=== PATIENT | female | born 1970 | race African-American/Black ===

== ENCOUNTER 2019-10-01 06:50 | Inpatient (IN) | payer BC, OTHER ==
[~2019-10-01] VITALS: Ht 175.3 cm; Wt 104.3 kg
--- NOTE | 2019-10-01 06:59 | NUR ---
PT BIB EMS C/O DIZZINESS WITH N/V, +D AND BLURRED VISION SINCE 199. PT AAOX4, ABLE TO FOLLOW COMMANDS, STRONG BILATERAL FENCE REPAIRMAN NOTED. PT CONNECTED TO THE DYNAMOTOR REPAIRER AND POX
[2019-10-01] MEDS ORDERED: ONDANSETRON HCL/PF 4 MG/2 ML VIAL ONE ×2 (07:05→10:53)
[2019-10-01 07:16] LABS: BASOPHILS % (AUTO) 0.4 % (0.0-2.0); EOSINOPHILS % (AUTO) 1.9 % (0.0-6.0); HEMATOCRIT 39 % (33-45); HEMOGLOBIN 12.5 g/dL (11.5-14.8); LYMPHOCYTES # (AUTO) 0.5 /CMM (0.8-4.8); LYMPHOCYTES % (AUTO) 9.7 % (20.0-44.0); MEAN CORPUSCULAR HGB CONC 32 g/dl (31.0-36.0); MEAN CORPUSCULAR VOLUME 81 fL (82-100); MONOCYTES # (AUTO) 0.3 /CMM (0.1-1.30); MONOCYTES % (AUTO) 5.5 % (2.0-12.0); NEUTROPHILS # (AUTO) 4.3 /CMM (1.8-8.9); NEUTROPHILS % (AUTO) 82.5 % (43.0-81.0); PLATELET COUNT (AUTO) 170 /CMM (150-450); RED BLOOD CELL COUNT(AUTO) 4.82 MIL/uL (4.0-5.2); WHITE BLOOD COUNT (AUTO) 5.2 K/uL (4.3-11.0)
[2019-10-01 07:21] LABS: CREATININE 0.8 mg/dL (0.6-1.3); POTASSIUM 3.9 mmol/L (3.5-5.1)
[2019-10-01] MEDS ORDERED: DIAZEPAM 10 MG TABLET ONE (07:23)
[2019-10-01 07:27] LABS: ALBUMIN 3.9 g/dL (3.4-5.0); BILIRUBIN,DIRECT 0.1 mg/dL (0.0-0.2); BILIRUBIN,TOTAL 0.5 mg/dL (0.2-1.0); TOTAL PROTEIN, SERUM 7.7 g/dL (6.4-8.2)
[2019-10-01] MEDS ORDERED: DIAZEPAM 5 MG/ML 2 ML DISP.SYRIN IV ONE (07:30)
[2019-10-01] MEDS ORDERED: DIAZEPAM 10 MG TABLET PO ONE (07:30)
[2019-10-01] MEDS ORDERED: IV NS 0.9% 1,000 ML BAG IV ONE (07:30)
[2019-10-01] MEDS ORDERED: ONDANSETRON HCL/PF 4 MG/2 ML VIAL IVP ONE ×2 (07:30→11:00)
--- NOTE | 2019-10-01 09:13 | NUR ---
Patient is resting comfortably in bed with eyes closed. Easily aroused. VSS
--- NOTE | 2019-10-01 10:06 | NUR ---
TAKEN TO MRI
[2019-10-01] MEDS ORDERED: MECLIZINE HCL 25 MG TABLET ONE (10:53)
[2019-10-01] MEDS ORDERED: MECLIZINE HCL 12.5 MG TABLET PO ONE (11:00)
--- NOTE | 2019-10-01 11:34 | NUR ---
CALLED OUTREACH SPECIALIST NEUROLOGIST. SPEAKING TO HIM NOW
--- NOTE | 2019-10-01 11:44 | NUR ---
THOMAS MONTE CELLPHONE [phone]
--- NOTE | 2019-10-01 11:46 | NUR ---
CALLED NURSING SUP FOR M/S BED.
--- NOTE | 2019-10-01 11:46 | NUR ---
CALLED [facility].
--- NOTE | 2019-10-01 11:59 | NUR ---
ROWDY LUCERO NP AT BEDSIDE
--- NOTE | 2019-10-01 12:15 | NUR ---
Brody reyes in [facility] - 10/01/19 at 1221 by ANJEL NURSING AUBREY PHILLIPS M/S BED [id number].
[2019-10-01] MEDS ORDERED: MAG HYDROX/AL HYDROX/SIMETH 30 ML UDC PO PRN (12:30)
[2019-10-01] MEDS ORDERED: ONDANSETRON HCL/PF 4 MG/2 ML VIAL IVP PRN (12:30)
[2019-10-01] MEDS ORDERED: MECLIZINE HCL 12.5 MG TABLET PO PRN (12:30)
[2019-10-01] MEDS ORDERED: ACETAMINOPHEN 325 MG TABLET PO PRN (12:30)
[2019-10-01] MEDS ORDERED: HYDROCODONE/APAP 10/325MG 1 EA TABLET PO PRN (12:30)
[2019-10-01] MEDS ORDERED: MAGNESIUM HYDROXIDE 30 ML UDC PO PRN (12:30)
[2019-10-01] MEDS ORDERED: TEMAZEPAM 15 MG CAPSULE PO PRN (12:30)
--- NOTE | 2019-10-01 13:04 | NUR ---
REPORT GIVEN TO KELLY CALDERA
--- NOTE | 2019-10-01 13:17 | NUR ---
NURSING SUP GAVE BED M/S BED 201.
--- NOTE | 2019-10-01 13:20 | NUR ---
Patient transferred to room 201 in stable condition. No distress noted.
--- NOTE | 2019-10-01 13:30 | NUR ---
ADMISSION TO [facility] SURGE PT CAME TO FLOOR VIA [facility] @[id number]. PT CAME FROM ER WITH COMPLAINTS OF DIZZINESS AND BLURED VISION. 49 Y/O FEMALE WITH HX OF HYPOTHYROIDISM AND HYSTERECTOMY 11 YRS AGO. COMPLETE BODY CHECK DONE. SKIN INTACT. REFUSED FOR PICTURES TO BE TAKEN. NO SKIN BREAKDOWN NOTED. PT CONTINENT OF BOWEL AND BLADER. AMBULATORY WITH ASSIST. SAFETY PRECAUTIONS IIN PLACE. BED LOCKED AND IN LOW POSITION. SIDE RAILS UP. FALL PRECAUTIONS IN PLACE. EDUCATED PT TO CALL NURSING STAFF IF WANTING TO GET UP FROM BED. PT AGREED. PT'S THOMAS MOODY PRESENT UPON ADMISSION TO MED SURGE FLOOR. PHONE NUMBER PROVIDED BY . VS CHECKED. T=97.8, P=75, RR=18, IO=949/72, O2 SAT=98% ON ROOM AIR. ALL NEEDS MET AND ATTENDED.
[2019-10-01] MEDS: IV NS 0.9% 1,000 ML IV PRN (13:38)
[2019-10-01 13:40] VITALS: BP 137/77
--- NOTE | 2019-10-01 14:45 | NUR ---
SEEN BY NEUROLOGY PT SEEN BY NEUROLOGY (DR. ESPINOZA), WITH NEW ORDERS FOR SOLUMEDROL 40MG IV X5 DAYS, PROTONIX 40MG QD, THE REQUESTED FOR HOSPITALIST TO PUT PT ON SLIDING SCALE. WILL NOTIFY DR LUCERO
[2019-10-01] MEDS: MECLIZINE HCL 25 MG TABLET PO PRN (14:55)
[2019-10-01 15:10] VITALS: BP 137/77
[2019-10-01 15:13] VITALS: BP 137/77
[2019-10-01 16:27] VITALS: BP 146/72
[2019-10-01] MEDS ORDERED: PANTOPRAZOLE 40 MG TABLET.DR PO ONE (17:00)
[2019-10-01] MEDS ORDERED: PANTOPRAZOLE 40 MG TABLET.DR PO SCH (17:00)
[2019-10-01] MEDS ORDERED: DEXTROSE 50%-WATER 50 ML DISP.SYRIN IV PRN (17:00)
[2019-10-01] MEDS: methylPREDNISolone SOD SUCC 40 MG/ML VIAL IV SCH (17:23)
--- NOTE | 2019-10-01 17:37 | NUR ---
DR LUCERO FOLLOW UP RECEIVED ORDERS FROM DR LUCERO FOR MILD SLIDING SCALE WITH ACCUCHECKS ACHS
[2019-10-01] MEDS: BLOOD SUGAR DIAGNOSTIC 1 EACH STRIP IN SCH ×2 (17:50→21:57)
--- NOTE | 2019-10-01 18:31 | NUR ---
MS RN CLOSING NOTES PT IN BED. ASLEEP AT THIS TIME. PROVIDED COMFORTABLE ENVIRONMENT. PT STILL STATES THAT SHE STILL FEELS DIZZY. IST DOSE OF SOLUMEDROL GIVEN PER DR. ESPINOZA ORDERS. IV SITE INTACT AND PATENT ON R AC 20G. IV FLUID RUNNING NS @75CC/HR. TOLERATING WELL. PT WAS SERVED WITH DINNER. SHE SAID SHE WILL TRY TO EAT SOMETHING. ACCUCHECK WAS DONE PRIOR TO DINNER BS NOTED TO BE 76.
[2019-10-01 19:30] VITALS: BP 137/82
--- NOTE | 2019-10-01 19:54 | NUR ---
MS RN NOTES PATIENT IN BED, ASLEEP. ALERT AND ORIENTED X 4. BREATHING EVEN AND UNLABORED ON ROOM AIR. SHOWS NO SIGNS OF ACUTE RESPIRATORY DISTRESS. NO ACUTE PAIN. IV ON RAC 20G RUNNING NS AT 75ML/HR. CLEAN DRY AND INTACT. SHOWS NO SIGNS OF INFILTRATION, NO REDNESS. SAFETY PRECAUTION IN PLACE. BED IN LOWEST POSITION, LOCKED AND CALL LIGHT KEPT WITHIN REACH. WILL CONTINUE TO MONITOR.
[2019-10-01 20:00] VITALS: BP 137/82
[2019-10-01] MEDS: INSULIN REGULAR, HUMAN 100 UNIT/ML 3 ML VIAL SQ PRN (22:01)
[2019-10-02] MEDS: IV NS 0.9% 1,000 ML IV PRN ×2 (05:47→20:19)
[2019-10-02 06:23] LABS: BASOPHILS % (AUTO) 0.1 % (0.0-2.0); HEMATOCRIT 39 % (33-45); HEMOGLOBIN 12.8 g/dL (11.5-14.8); LYMPHOCYTES # (AUTO) 0.4 /CMM (0.8-4.8); LYMPHOCYTES % (AUTO) 5.6 % (20.0-44.0); MEAN CORPUSCULAR HGB CONC 33 g/dl (31.0-36.0); MEAN CORPUSCULAR VOLUME 81 fL (82-100); MONOCYTES # (AUTO) 0.2 /CMM (0.1-1.30); MONOCYTES % (AUTO) 3.3 % (2.0-12.0); NEUTROPHILS # (AUTO) 5.9 /CMM (1.8-8.9); PLATELET COUNT (AUTO) 191 /CMM (150-450); RED BLOOD CELL COUNT(AUTO) 4.82 MIL/uL (4.0-5.2); WHITE BLOOD COUNT (AUTO) 6.5 K/uL (4.3-11.0)
--- NOTE | 2019-10-02 06:33 | NUR ---
MS RN NOTES PATIENT IN BED, ASLEEP. ALERT AND ORIENTED X 4. BREATHING EVEN AND UNLABORED ON ROOM AIR. SHOWS NO SIGNS OF ACUTE RESPIRATORY DISTRESS. NO ACUTE PAIN. IV ON RAC 20G RUNNING NS AT 75ML/HR. CLEAN DRY AND INTACT SHOWS NO SIGNS OF INFILTRATION, NO REDNESS. ALL DUE MEDICATIONS GIVEN. SAFETY PRECAUTION IN PLACE. BED IN LOWEST POSITION, LOCKED AND CALL LIGHT KEPT WITHIN REACH. WILL ENDORSE TO ONCOMING NURSE.
[2019-10-02 06:36] LABS: CALCIUM, SERUM 9.1 mg/dL (8.5-10.1); CREATININE 0.7 mg/dL (0.6-1.3); MAGNESIUM 2.1 mg/dL (1.8-2.4); POTASSIUM 4.1 mmol/L (3.5-5.1)
[2019-10-02 06:44] LABS: THYROID STIMULATING HORMONE 0.173 uIU/mL (0.358-3.74)
[2019-10-02] MEDS: BLOOD SUGAR DIAGNOSTIC 1 EACH STRIP IN SCH ×4 (07:05→22:03)
[2019-10-02] MEDS: PANTOPRAZOLE 40 MG TABLET.DR PO SCH (07:58)
[2019-10-02 08:00] VITALS: BP 142/88
--- NOTE | 2019-10-02 08:00 | NUR ---
MS RN OPENING NOTES RECEIVED PT IN BED. AWAKE, ALERT AND ORIENTED X4. NO CARDIAC OR RESP DISTRESS NOTED. BREATH SOUNDS CLEAR. BREATHING EVEN AND UNLABORED. IV SITE NOTED ON R AC 20. NO S/S OF INFECTION OR INFILTRATION NOTED. PT CONTINENT OF BOWEL AND BLADER. AMBULATORY WITH ASSIST. SAFETY PRECAUTIONS IIN PLACE. BED LOCKED AND IN LOW POSITION. SIDE RAILS UP. FALL PRECAUTIONS IN PLACE. EDUCATED PT TO CALL NURSING STAFF IF WANTING TO GET UP FROM BED. PT AGREED.
[2019-10-02] MEDS: methylPREDNISolone SOD SUCC 40 MG/ML VIAL IV SCH (08:05)
--- NOTE | 2019-10-02 09:00 | NUR ---
F/U WITH DR ALEXIS ESPINOZA CALLED TO GET AN UPDATE ON PT. REPORTED TO MD REGARDING PT'S CONCERNS THIS AM. PER PT "I HAD A MIGRAINE THIS EARLY THIS MORNING BUT ITS GONE NOW." PT ALSO STATES THAT SHE FEELS "A LITTLE BETTER AFTER AFTER THE 1ST DOSE OF SOLUMEDROL" DR. ESPINOZA NOTIFIED. PER DR ESPINOZA, HE WILL GET THE PT SEEN BY INFECTIOUS DISEASE.
--- NOTE | 2019-10-02 09:39 | NUR ---
MRI WITH CONTRAST PT PICKED UP BY RADIOLOGY FOR MRI OF BRAIN WITH CONTRAST. CONSENT OBTAINED FROM PT
[2019-10-02] MEDS ORDERED: GADOTERIDOL 279.3 MG/ML VIAL IV ONE (10:38)
[2019-10-02] MEDS ORDERED: LORAZEPAM INJ 2 MG/ML VIAL IV PRN (12:00)
[2019-10-02 16:00] VITALS: BP 147/83
[2019-10-02] MEDS: INSULIN REGULAR, HUMAN 100 UNIT/ML 3 ML VIAL SQ PRN (17:39)
--- NOTE | 2019-10-02 18:09 | NUR ---
MS RN CLOSING NOTES PT IN BED. AWAKE ,ALERT AND ORIENTED. PT EATING HER DINNER BROUGHT IN BY HER FRIEND. PT WAS SEEN BY DR ESPINOZA TODAY. NO NEW ORDERS GIVEN. PROVIDED COMFORTABLE ENVIRONMENT. IV SITE ON R AC WAS DISCONTINUED DUE TO OCCLUSON. IV RE-INSERTED ON L WRIST 24G. IV SITE INTACT AND PATENT. NO S/S OF INFECTION OR INFILTRATION NOTED. IV FLUID RUNNING NS @75CC/HR. TOLERATING WELL. NO COMPLAINTS OF PAIN OR DISCOMFORT AT THIS TIME.
[2019-10-02 20:00] VITALS: BP 138/95
--- NOTE | 2019-10-03 06:34 | NUR ---
MS RN NOTES AWAKE & RESPONSIVE. NOT IN ANY DISTRESS. NO SOB NOTED. DENIES ANY PAIN OR DISCOMFORT AT THIS TIME. WITH IVF INFUSING WELL. MONITORED ACCORDINGLY. CALL LIGHT WITHIN REACH. BED IN LOWEST POSITION. SR UP X 2 FOR SAFETY. WILL ENDORSE TO NEXT SHIFT.
[2019-10-03] MEDS: BLOOD SUGAR DIAGNOSTIC 1 EACH STRIP IN SCH ×4 (06:44→22:21)
--- NOTE | 2019-10-03 07:53 | NUR ---
MS RN OPENING NOTES Received Patient asleep and resting in bed. A/O x 4. Patient in stable condition. Breathing even and unlabored on room air with no respiratory distress. Denies pain. 22g PIV on left wrist clean, intact, patent and flushing well with NS infusing at 75ml/hr. Safety precautions in place. Bed locked and set to lowest position with side rails x 2 up. All needs rendered at this time. Call light within reach. Will continue to monitor.
[2019-10-03 08:00] VITALS: BP 148/99
[2019-10-03] MEDS: PANTOPRAZOLE 40 MG TABLET.DR PO SCH (09:11)
[2019-10-03] MEDS: methylPREDNISolone SOD SUCC 40 MG/ML VIAL IV SCH (09:11)
[2019-10-03] MEDS: MECLIZINE HCL 25 MG TABLET PO PRN (11:43)
[2019-10-03 16:00] VITALS: BP 148/89
[2019-10-03] MEDS: INSULIN REGULAR, HUMAN 100 UNIT/ML 3 ML VIAL SQ PRN (17:58)
--- NOTE | 2019-10-03 18:33 | NUR ---
MS RN CLOSING NOTES Patient awake and resting in bed. A/O x 4. Patient in stable condition. Breathing even and unlabored on room air with no respiratory distress. Denies pain. 22g PIV on left wrist clean, intact, patent and flushing well. Safety precautions in place. Bed locked and set to lowest position with side rails x 2 up. All needs rendered at this time. Call light within reach. Will endorse plan of care to oncoming shift.
[2019-10-03 19:30] VITALS: BP 142/102
--- NOTE | 2019-10-03 19:34 | NUR ---
MS RN NOTES PATIENT IN SITTING AT EDGE OF BED ON COMPUTER. ALERT AND ORIENTED X 4. BREATHING EVEN AND UNLABORED ON ROOM AIR. DENIES ACUTE RESPIRATORY DISTRESS, NO ACUTE PAIN. IV ON LEFT WRIST 22G, CLEAN DRY AND INTACT. SHOWS NO SIGNS OF INFILTRATION, NO REDNESS. SAFETY PRECAUTION IN PLACE. BED IN LOWEST POSITION, LOCKED, AND CALL LIGHT KEPT WITHIN REACH. WILL CONTINUE TO MONITOR.
[2019-10-03 20:00] VITALS: BP 142/102
[2019-10-04] MEDS: BLOOD SUGAR DIAGNOSTIC 1 EACH STRIP IN SCH (07:12)
--- NOTE | 2019-10-04 07:14 | NUR ---
MS RN NOTES PATIENT IN BED ASLEEP, ALERT AND ORIENTED X 4. BREATHING EVEN AND UNLABORED ON ROOM AIR. DENIES ACUTE RESPIRATORY DISTRESS, NO ACUTE PAIN. IV ON LEFT WRIST 22G, CLEAN DRY AND INTACT. SHOWS NO SIGNS OF INFILTRATION, NO REDNESS. ALL DUE MEDICATIONS GIVEN. SAFETY PRECAUTION IN PLACE. BED IN LOWEST POSITION, LOCKED, AND CALL LIGHT KEPT WITHIN REACH. WILL ENDORSE TO ONCOMING NURSE.
[2019-10-04 08:00] VITALS: BP 161/95
--- NOTE | 2019-10-04 08:00 | NUR ---
MS RN OPENING NOTES Received Patient awake and resting in bed. A/O x 4. Patient in stable condition. Breathing even and unlabored on room air with no respiratory distress. Denies pain. 22g PIV on left wrist clean, intact, patent and flushing well. Safety precautions in place. Bed locked and set to lowest position with side rails x 2 up. All needs rendered at this time. Call light within reach. Will continue to monitor.
[2019-10-04] MEDS ORDERED: ONDA4TAB5 PO (08:10)
[2019-10-04] MEDS ORDERED: METH4TAB3 PO (08:10)
[2019-10-04] MEDS ORDERED: ZOLP10TA2 PO (08:10)
[2019-10-04] MEDS ORDERED: HYDR-4384 PO (08:10)
[2019-10-04] MEDS: methylPREDNISolone SOD SUCC 40 MG/ML VIAL IV SCH (09:02)
[2019-10-04] MEDS: PANTOPRAZOLE 40 MG TABLET.DR PO SCH (09:02)
--- NOTE | 2019-10-04 11:15 | NUR ---
MS DIESEL DINKEY OPERATOR NOTES Patient discharged for home at this time. Patient in stable condition. VS stable with no acute distress. Breathing even and unlabored on room air with no respiratory distress. Denies pain. Skin intact. Medication reconciliation and discharge orders reviewed and explained to Patient and . Patient and verbalized understanding. All belongings with Patient. Patient will follow up with ENT as scheduled and PCP as scheduled. Escorted Patient to the [facility] for safety. Patient picked up by gera Ruiz.
== END 2019-10-04 11:15 | disposition home or self-care (01) | DRG 156 ==
LOC: ER 06:51 → MEDSG2 13:18
PROVIDERS: ADMIT Nurse Practitioner Acute Care; ATTEND Nurse Practitioner Acute Care
DX: H93.3X9 Disorders of unspecified acoustic nerve (principal); Z68.34 Body mass index [BMI] 34.0-34.9, adult; R42 Dizziness and giddiness; E66.9 Obesity, unspecified; Z90.710 Acquired absence of both cervix and uterus; R73.9 Hyperglycemia, unspecified; H55.00 Unspecified nystagmus; G43.909 Migraine, unspecified, not intractable, without status migrainosus; E04.2 Nontoxic multinodular goiter; R90.89 Other abnormal findings on diagnostic imaging of central nervous system
CPT/HCPCS: 36415; 70450-TC; 70551-TC; 70552-TC; 71045-TC; 80048-TC; 80061-TC; 80076-TC; 82962-TC; 83735-TC; 84100-TC; 84439-TC; 84443-TC; 84703-TC; 85025-TC; 87081-TC; 97116-TC; 97530-TC; A9579; G0378; J1815; J2405; J2920; J7030; J8597

== ENCOUNTER 2019-10-07 15:55 | Outpatient (CLI) | payer BC ==
[~2019-10-07 15:55] MED LIST: HYDR-4384 PO; METH4TAB3 PO; ONDA4TAB5 PO; ZOLP10TA2 PO
== END 2019-10-07 23:59 | disposition home or self-care (01) ==
LOC: MSC 15:55
PROVIDERS: ATTEND Internal Medicine
DX: H93.3X9 Disorders of unspecified acoustic nerve (principal); E04.2 Nontoxic multinodular goiter; E66.8 Other obesity; R03.0 Elevated blood-pressure reading, without diagnosis of hypertension; R73.09 Other abnormal glucose